=== PATIENT | male | born 1970 | race Caucasian/White ===

== ENCOUNTER 2019-04-23 07:18 | Observation (INO) | payer OTHER ==
--- NOTE | 2019-04-23 07:36 | ER Document Report ---
ED General - General Chief Complaint: Syncope Stated Complaint: POSSIBLE SEIZURE Time Seen by Provider: 04/23/19 07:36 Notes: Patient is a 48-year-old male with diabetes, hypertension, ADHD that presents to the emergency department for chief complaint of syncopal episode. Patient states that he believes that around 6 AM this morning, he had a episode where he passed out, he states that he was looking for his belt last thing he remembers is waking up on the floor, he is unsure how long he lost consciousness for. He is complaining of a headache, which she states did start around 3 AM and woke him up as a right-sided headache. He states he woke up and he had urinated on himself as well. He called his significant other, and apparently he sounded somewhat confused on the phone by the time she got home he was back to his baseline. He denies ever having episodes like this in the past, denies being on insulin, or having low blood sugar in the past. Denies seizure history. At this time is complaining of a headache, describes it as an aching in nature, 3 out of 10 mainly on the right side of his head. Denies any blurred vision or change in vision, denies any numbness, weakness or tingling in any extremity. Past Medical History: Hypertension, diabetes mellitus, ADHD Past Surgical History: Scrotal surgery Social History: Admits to smoking cigarettes, admits to occasional alcohol use, denies illicit drug use, works as a medic. Family History: Reviewed and noncontributory for presenting illness Allergies: Reviewed, see documented allergy list. REVIEW OF SYSTEMS: Other than noted above, the 12 point review of systems was reviewed with the patient and were negative, all pertinent findings are included in the HPI. PHYSICAL EXAMINATION: Vital signs reviewed, nursing noted reviewed. GENERAL: Well-appearing, well-nourished and in no acute distress. HEAD: Atraumatic, normocephalic. EYES: Eyes appear normal, extraocular movements intact, sclera anicteric, conjunctiva are normal. PERRLA ENT: nares patent, oropharynx clear without exudates. Moist mucous membranes. TMs appear normal bilaterally NECK: Normal range of motion, supple without lymphadenopathy, no midline tenderness LUNGS: Breath sounds clear to auscultation bilaterally and equal. No wheezes rales or rhonchi. HEART: Regular rate and rhythm without murmurs ABDOMEN: Soft, obese, nontender, normoactive bowel sounds. No rebound, guarding, or rigidity. No masses appreciated. EXTREMITIES: Nontender, good range of motion, no pitting or edema. NEUROLOGICAL: No focal neurological deficits. Moves all extremities spontaneously Motor and sensory grossly intact on exam. NIH stroke scale score: 0 PSYCH: Normal mood, normal affect. SKIN: Warm, Dry, normal turgor, no rashes or lesions noted on exposed skin TRAVEL OUTSIDE OF THE [place] IN LAST 30 DAYS: No - Related Data Allergies/Adverse Reactions: amoxicillin [Amoxicillin] Allergy (Verified 04/23/19 10:07) baxtra Allergy (Uncoded 04/23/19 10:07) Past Medical History - Social History Smoking Status: Current Every Day Smoker Family History: Reviewed & Not Pertinent, Other - Past Medical History Cardiac Medical History: Reports: Hx Hypertension Pulmonary Medical History: Denies: Hx Tuberculosis Past Surgical History: Reports: Hx Orthopedic Surgery - 8 broken vertebrea, shoulder surgery. Denies: Hx Pacemaker - Immunizations Hx Diphtheria, Pertussis, Tetanus Vaccination: Yes Physical Exam - Vital signs Vitals: Temp Pulse Resp BP Pulse Ox 98.3 F 99 18 139/91 H 100 04/23/19 07:26 04/23/19 07:26 04/23/19 07:26 04/23/19 07:26 04/23/19 07:26 Course - Re-evaluation Re-evalutation: Patient seen and examined vital signs reviewed. Laboratory data and imaging were ordered as appropriate for the patient's presenting symptoms and complaint, with consideration of any critical or life threatening conditions that may be associated with their obtained history and exam as noted above. Patient was treated with IV fluids, Reglan, Tylenol for headache Results were reviewed when available and demonstrated slightly elevated creatin ine from baseline, which was from many years ago, this may be his new baseline, troponin negative, EKG unremarkable, The patient was re-evaluated and was stable, however the patient's story is concerning, of having a syncopal episode, without prodrome, and urination, possible postictal state, unclear if this is seizure versus syncope, and I think it warrants further work-up with observation in the hospital, I discussed with the patient and he was agreeable. Evaluation was most consistent with syncopal episode, versus seizure Results were discussed with the patient at this point after careful consideration I feel that that patient should be admitted to the hospital. This was discussed with the patient that it is in the best interest for their care to be admitted for further evaluation and management. Patient agreed with this plan of care. A call was placed to the admitting provider Sada Solares CNP, who graciously accepted the patient onto their service. *Note is created using voice recognition software and may contain spelling, syntax or grammatical errors. Laboratory 04/23/19 04/23/19 04/23/19 07:42 07:42 07:42 WBC 7.4 RBC 5.53 Hgb 16.1 Hct 47.6 MCV 86 MCH 29.0 MCHC 33.7 RDW 14.5 H Plt Count 254 Seg Neutrophils % 62.8 Lymphocytes % 27.0 Monocytes % 6.7 Eosinophils % 2.7 Basophils % 0.8 Absolute Neutrophils 4.6 Absolute Lymphocytes 2.0 Absolute Monocytes 0.5 Absolute Eosinophils 0.2 Absolute Basophils 0.1 Sodium 138.2 Potassium 4.4 Chloride 99 Carbon Dioxide 28 Anion Gap 11 BUN 23 H Creatinine 1.33 H Est GFR ( Amer) > 60 Est GFR (Non-Af Amer) 57 L Glucose 109 Calcium 11.5 H Total Bilirubin 0.5 Direct Bilirubin 0.4 Neonat Total Bilirubin Not Reportable Neonat Direct Bilirubin Not Reportable Neonat Indirect Bili Not Reportable AST 54 ALT 97 H Alkaline Phosphatase 72 Creatine Kinase 177 H Troponin I < 0.012 Total Protein 7.[address] 04/23/19 00:00 IMPRESSION: No acute intracranial pathology. EVIDENCE OF ACUTE STROKE: NO. - Vital Signs Vital signs: Temp Pulse Resp BP Pulse Ox 98.3 F 77 19 146/72 H 98 04/23/19 07:26 04/23/19 10:40 04/23/19 10:39 04/23/19 10:40 04/23/19 10:39 - Laboratory Result Diagrams: 04/23/19 07:42 04/23/19 07:42 Laboratory results interpreted by me: 04/23/19 04/23/19 07:42 07:42 RDW 14.5 H BUN 23 H Creatinine 1.33 H Est GFR (Non-Af Amer) 57 L Calcium 11.5 H ALT 97 H Creatine Kinase 177 H - EKG Interpretation by Me Additional EKG results interpreted by me: EKG demonstrates sinus rhythm with a ventricular rate of 91 bpm, normal axis, normal intervals, no evidence of acute ischemia in this EKG, this is compared with a prior EKG from 10/16/2012, without significant change. Discharge - Discharge Clinical Impression: Syncope Condition: Stable Disposition: ADMITTED OBSERVATION Admitting Provider: Phan (Hospitalist) - Sada Solares [facility] Unit Admitted: Telemetry
[2019-04-23 07:59] LABS: ABSOLUTE BASOPHILS # (AUTO) 0.1 10^3/uL (0.0-0.2); ABSOLUTE EOSINOPHILS # (AUTO) 0.2 10^3/uL (0.0-0.6); ABSOLUTE MONOCYTES (AUTO) 0.5 10^3/uL (0.1-1.4); ABSOLUTE NEUT (AUTO) 4.6 10^3/uL (1.7-8.2); BASOPHILS % (AUTO) 0.8 % (0-2); EOSINOPHILS % (AUTO) 2.7 % (0-6); HEMATOCRIT 47.6 % (37.9-51.0); HEMOGLOBIN 16.1 g/dL (13.5-17.0); MEAN CORPUSCULAR HGB CONC 33.7 g/dL (32.0-36.0); MEAN CORPUSCULAR VOLUME 86 fl (80-97); MONOCYTES % (AUTO) 6.7 % (3-13); PLATELET COUNT 254 10^3/uL (150-450); RED BLOOD COUNT 5.53 10^6/uL (4.35-5.55); RED CELL DISTRIBUTION WIDTH 14.5 % (11.5-14.0); SEGMENTED NEUTROPHILS % (AUTO) 62.8 % (42-78); TOTAL CELLS COUNTED % (AUTO) 100 %; WHITE BLOOD COUNT 7.4 10^3/uL (4.0-10.5)
[2019-04-23 08:16] LABS: ALANINE AMINOTRANSFERASE 97 U/L (21-72); ALBUMIN 4.8 g/dL (3.5-5.0); ALKALINE PHOSPHATASE 72 U/L (38-126); ANION GAP 11 (5-19); ASPARTATE AMINO TRANSFERASE 54 U/L (17-59); BILIRUBIN,DIRECT 0.4 mg/dL (0.0-0.4); BILIRUBIN,TOTAL 0.5 mg/dL (0.2-1.3); BLOOD UREA NITROGEN 23 mg/dL (7-20); CALCIUM 11.5 mg/dL (8.4-10.2); CARBON DIOXIDE 28 mmol/L (22-30); CHLORIDE 99 mmol/L (98-107); CREATINE KINASE 177 U/L (55-170); GLUCOSE 109 mg/dL (75-110); POTASSIUM 4.4 mmol/L (3.6-5.0); SODIUM 138.2 mmol/L (137-145); TOTAL PROTEIN 7.9 g/dL (6.3-8.2)
[2019-04-23] MEDS ORDERED: ACETAMINOPHEN 325 MG TABLET PO ONE (08:26)
[2019-04-23] MEDS ORDERED: NORMAL SALINE 1000 ML 1,000 ML IV ONE (08:26)
[2019-04-23] MEDS ORDERED: METOCLOPRAMIDE HCL INJ/PF 10 MG/2 ML SDV IV ONE (08:26)
--- NOTE | 2019-04-23 08:41 | RADIOLOGY REPORT (SQ) ---
EXAM DESCRIPTION: CT HEAD WITHOUT COMPLETED DATE/TIME: 04/23/2019 8:17 am REASON FOR STUDY: syncope and hit head COMPARISON: 01/11/2011 TECHNIQUE: Axial images acquired through the brain without intravenous contrast. Images reviewed wi th bone, brain and subdural windows. Additional sagittal and coronal reconstructions were generated. Images stored on PACS. All CT scanners at this facility use dose modulation, iterative reconstruction, and/or weight based d osing when appropriate to reduce radiation dose to as low as reasonably achievable (ALARA). [facility]: Dose Right [facility]: CareDose [facility]: Dose Right [facility]: Teradose 4D [facility]: [employer] RADIATION DOSE: CT Rad equipment meets quality standard of care and radiation dose reduction techniq ues were employed. CTDIvol: 53.2 mGy. DLP: 1097 mGy-cm. mGy. LIMITATIONS: None. FINDINGS: VENTRICLES: Normal size and contour. CEREBRUM: No masses. No hemorrhage. No midline shift. No evidence for acute infarction. Normal gra y/white matter differentiation. No areas of low density in the white matter. CEREBELLUM: No masses. No hemorrhage. No alteration of density. No evidence for acute infarction. EXTRAAXIAL SPACES: No fluid collections. No masses. ORBITS AND GLOBE: No intra- or extraconal masses. Normal contour of globe without masses. CALVARIUM: No fracture. PARANASAL SINUSES: No fluid or mucosal thickening. SOFT TISSUES: No mass or hematoma. OTHER: No other significant finding. IMPRESSION: No acute intracranial pathology. EVIDENCE OF ACUTE STROKE: NO. COMMENT: Quality ID # [id number]: Final reports with documentation of one or more dose reduction techniques (e.g., Automated exposure control, adjustment of the mA and/or kV according to patient size, use of iterative reconstruction technique) TECHNICAL DOCUMENTATION: JOB ID: [id number] [employer]- All Rights Reserved Reading location - IP/workstation name: [email or web address]
[2019-04-23 10:31] LABS: APPEARANCE,URINE CLEAR; BILIRUBIN,URINE NEGATIVE (NEGATIVE); COLOR,URINE YELLOW; GLUCOSE, URINE NEGATIVE (NEGATIVE); KETONES,URINE NEGATIVE (NEGATIVE); LEUKOCYTE ESTERASE,URINE NEGATIVE (NEGATIVE); NITRITE,URINE NEGATIVE (NEGATIVE); PROTEIN,URINE NEGATIVE (NEGATIVE); URINE SPECIFIC GRAVITY 1.019; UROBILINOGEN,URINE NEGATIVE mg/dL (<2.0)
--- NOTE | 2019-04-23 10:44 | RADIOLOGY REPORT (SQ) ---
EXAM DESCRIPTION: CHEST SINGLE VIEW COMPLETED DATE/TIME: 04/23/2019 10:19 am REASON FOR STUDY: SYNCOPE COMPARISON: 10/16/2012 EXAM PARAMETERS: NUMBER OF VIEWS: One view. TECHNIQUE: Single frontal radiographic view of the chest acquired. RADIATION DOSE: NA LIMITATIONS: None. FINDINGS: LUNGS AND PLEURA: No opacities, masses or pneumothorax. No pleural effusion. MEDIASTINUM AND HILAR STRUCTURES: No masses. Contour normal. HEART AND VASCULAR STRUCTURES: Heart normal in size. Normal vasculature. BONES: No acute findings. HARDWARE: None in the chest. OTHER: No other significant finding. IMPRESSION: NO ACUTE RADIOGRAPHIC FINDING IN THE CHEST. TECHNICAL DOCUMENTATION: JOB ID: [id number] [employer]- All Rights Reserved Reading location - IP/workstation name: [email or web address]
[2019-04-23] MEDS ORDERED: ONDANSETRON 4 MG TAB.RAPDIS PO PRN (10:54)
[2019-04-23] MEDS ORDERED: ACETAMINOPHEN 325 MG TABLET PO PRN ×2 (10:54→17:30)
[2019-04-23] MEDS ORDERED: DEXTROSE 50%-WATER 25 GM/50 ML DISP.SYRIN IV PRN ×2 (11:03)
[2019-04-23] MEDS ORDERED: GLUCAGON,HUMAN RECOMB 1 MG INJ IM PRN (11:03)
[2019-04-23] MEDS ORDERED: HYDRALAZINE HCL INJ/PF 20 MG/1 ML SDV IV PRN (11:03)
[2019-04-23] MEDS ORDERED: DEXTROSE 40% GEL 15 GM TUBE PO PRN ×2 (11:03)
--- NOTE | 2019-04-23 11:29 | EKG REPORT ---
SEVERITY:- NORMAL ECG - SINUS RHYTHM : Confirmed by: Amy Choudhury MD 23-Apr-2019 11:28:03
[2019-04-23 15:42] LABS: URINE AMPHETAMINES SCREEN UNCONFIRMED POSITIVE; URINE BARBITURATES SCREEN NEGATIVE; URINE BENZODIAZEPINES SCREEN NEGATIVE; URINE COCAINE SCREEN NEGATIVE; URINE MARIJUANA (THC) SCREEN NEGATIVE; URINE METHADONE SCREEN NEGATIVE; URINE PHENCYCLIDINE SCREEN NEGATIVE
[2019-04-23] MEDS ORDERED: LORAZEPAM INJ 2 MG/1 ML VIAL IV PRN (16:12)
[2019-04-23] MEDS ORDERED: (PENDING PHARMACY ID) (Oxycodone Hcl/Acetaminophen [Oxycodon-Acetaminophen 7.5-325] 1 TAB) PO PRN ×2 (16:13→17:10)
[2019-04-23] MEDS: INSULIN LISPRO 100 UNIT/ML 3 ML VIAL SUBCUT SCH ×2 (16:32→21:36)
--- NOTE | 2019-04-23 16:39 | PDOC H&P ---
History of Present Illness Admission Date/PCP: 04/23/19 10:46 KATIE LOVING MD Patient complains of: LOC History of Present Illness: STACIA DAMIAN is a 48 year old male with a PMH of DM, HTN, morbid obesity, 0.5 PPD smoker and ADHD. He presents to [facility] following an episode of loss of consciousness this morning at approximately 0610. The patient states that he was getting ready for work, standing up getting dressed when, "the next thing I knew, I was on the ground." Patient endorses an episode of urinary incontinence. The patient immediately called his (a crossbar frame wirer). She reports that his speech was somewhat slurred and she had difficulty understanding him. This episode prompted the patient to come to [facility] ED for evaluation. Upon arrival to [facility], the patient's vital signs were WNL. Head CT benign. CXR negative for cardiopulmonary pathology. Laboratory results revealed acute kidney injury (creatinine 1.33 baseline 1.0). All other laboratory studies, including CBC, cardiac enzymes and chemistry were WNL. Upon assessment, the patient is sitting up in chair at bedside. He is alert and oriented x3, able to answer all questions appropriately without pause. He endorses mild right frontal headache and right eye blurry vision. Small area of soft tissue swelling above the right eye. Remaining physical exam is completely benign. Given the patient's body habitus and medical history, it is highly unlikely that he is now developing a seizure disorder. In the absence of neuro pathology on CT scan, primary differential diagnosis is cardiac arrhythmia. Discussed patient's case with reel hooker, Dr. Hou, who agrees. Plan to admit patient to hospitalist service for syncope work-up. Past Medical History Cardiac Medical History: Reports: Hypertension Pulmonary Medical History: Denies: Tuberculosis Neurological Medical History: Reports: Migraine Endocrine Medical History: Reports: Diabetes Mellitus Type 2 Past Surgical History Past Surgical History: Reports: Orthopedic Surgery - 8 broken vertebrea, shoulder surgery Denies: Pacemaker Social History Information Source: Patient Lives with: Family Smoking Status: Current Every Day Smoker Cigarettes Packs Per Day: 0.5 Number of Years Smokin Frequency of Alcohol Use: Rare Hx Recreational Drug Use: No Drugs: None Hx Prescription Drug Abuse: No - Advance Directive Resuscitation Status: Full Code Family History Family History: DM, Hypertension Parental Family History Reviewed: Yes Children Family History Reviewed: NA Sibling(s) Family History Reviewed.: Yes Medication/Allergy Home Medications: Chlorthalidone [Hygroton 25 mg Tablet] 25 mg PO DAILY 04/23/19 Dextroamphetamine/Amphetamine [Adderall XR 20 mg Capsule] 20 mg PO QAM 04/23/19 Dextroamphetamine/Amphetamine [Dextroamp-Amphetamin 20 mg Tab] 20 mg PO NOON 04/23/19 Metformin HCl [Metformin HCl ER] 1,000 mg PO DAILY 04/23/19 Oxycodone HCl/Acetaminophen [Oxycodon-Acetaminophen 7.5-325] 1 tab PO Q8HP PRN 04/23/19 Valsartan 320 mg PO DAILY 04/23/19 Allergies/Adverse Reactions: amoxicillin [Amoxicillin] Allergy (Verified 04/23/19 10:07) baxtra Allergy (Uncoded 04/23/19 10:07) Review of Systems Constitutional: PRESENT: headache(s) - R frontal Eyes: PRESENT: visual disturbances - R eye Nose, Mouth, and Throat: PRESENT: headache(s) - R head Cardiovascular: ABSENT: chest pain, orthropnea, palpitations Gastrointestinal: ABSENT: abdominal pain, nausea, vomiting Genitourinary: ABSENT: dysuria Musculoskeletal: ABSENT: joint swelling, muscle weakness Integumentary: ABSENT: diaphoresis Neurological: ABSENT: abnormal gait, vertigo, weakness Psychiatric: ABSENT: anxiety, depression Endocrine: ABSENT: cold intolerance, heat intolerance Hematologic/Lymphatic: ABSENT: easy bleeding Physical Exam Vital Signs: Temp Pulse Resp BP Pulse Ox 98.3 F 77 14 114/76 99 04/23/19 07:26 04/23/19 10:40 04/23/19 12:00 04/23/19 11:02 04/23/19 12:00 Intake & Output 04/22/19 04/23/19 04/24/19 06:59 06:59 06:59 Intake Total 1000 Balance 1000 Weight 171.912 kg General appearance: PRESENT: no acute distress, morbidly obese Head exam: PRESENT: atraumatic, normocephalic Eye exam: PRESENT: conjunctiva pink, EOMI, PERRLA. ABSENT: scleral icterus Ear exam: PRESENT: normal external ear exam Mouth exam: PRESENT: moist, tongue midline Neck exam: PRESENT: full ROM. ABSENT: carotid bruit, JVD, lymphadenopathy, thyromegaly Respiratory exam: PRESENT: clear to auscultation colette, symmetrical, unlabored. ABSENT: rales, rhonchi, wheezes Cardiovascular exam: PRESENT: RRR. ABSENT: diastolic murmur, rubs, systolic murmur Pulses: PRESENT: normal radial pulses, normal dorsalis pedis pul Vascular exam: PRESENT: normal capillary refill GI/Abdominal exam: PRESENT: normal bowel sounds, soft. ABSENT: distended, guarding, mass, organolmegaly, rebound, tenderness Rectal exam: PRESENT: deferred Extremities exam: PRESENT: full ROM. ABSENT: calf tenderness, clubbing, pedal edema Musculoskeletal exam: PRESENT: ambulatory, full ROM Neurological exam: PRESENT: alert, awake, oriented to person, oriented to place, oriented to time, oriented to situation Psychiatric exam: PRESENT: appropriate affect, normal mood Skin exam: PRESENT: dry, intact, warm. ABSENT: cyanosis, rash Results Laboratory Results: 04/23/19 07:42 04/23/19 07:42 04/23/19 04/23/19 04/23/19 07:42 07:42 07:42 WBC 7.4 RBC 5.53 Hgb 16.1 Hct 47.6 MCV 86 MCH 29.0 MCHC 33.7 RDW 14.5 H Plt Count 254 Seg Neutrophils % 62.8 Lymphocytes % 27.0 Monocytes % 6.7 Eosinophils % 2.7 Basophils % 0.8 Absolute Neutrophils 4.6 Absolute Lymphocytes 2.0 Absolute Monocytes 0.5 Absolute Eosinophils 0.2 Absolute Basophils 0.1 Sodium 138.2 Potassium 4.4 Chloride 99 Carbon Dioxide 28 Anion Gap 11 BUN 23 H Creatinine 1.33 H Est GFR ( Amer) > 60 Est GFR (Non-Af Amer) 57 L Glucose 109 Calcium 11.5 H Total Bilirubin 0.5 AST 54 ALT 97 H Alkaline Phosphatase 72 Total Protein 7.9 Albumin 4.8 TSH 3.68 Urine Color Urine Appearance Urine pH Ur Specific [place] Urine Protein Urine Glucose (UA) Urine Ketones Urine Blood Urine Nitrite Ur Leukocyte Esterase Urine WBC (Auto) Urine RBC (Auto) 04/23/19 09:46 WBC RBC Hgb Hct MCV MCH MCHC RDW Plt Count Seg Neutrophils % Lymphocytes % Monocytes % Eosinophils % Basophils % Absolute Neutrophils Absolute Lymphocytes Absolute Monocytes Absolute Eosinophils Absolute Basophils Sodium Potassium Chloride Carbon Dioxide Anion Gap BUN Creatinine Est GFR ( Amer) Est GFR (Non-Af Amer) Glucose Calcium Total Bilirubin AST ALT Alkaline Phosphatase Total Protein Albumin TSH Urine Color YELLOW Urine Appearance CLEAR Urine pH 5.0 Ur Specific [place] 1.019 Urine Protein NEGATIVE Urine Glucose (UA) NEGATIVE Urine Ketones NEGATIVE Urine Blood NEGATIVE Urine Nitrite NEGATIVE Ur Leukocyte Esterase NEGATIVE Urine WBC (Auto) 1 Urine RBC (Auto) 0 04/23/19 04/23/19 07:42 07:42 Creatine Kinase 177 H Troponin I < 0.012 Impressions: Head CT 04/23/19 00:00 IMPRESSION: No acute intracranial pathology. EVIDENCE OF ACUTE STROKE: NO. Chest X-Ray 04/23/19 09:44 IMPRESSION: NO ACUTE RADIOGRAPHIC FINDING IN THE CHEST. Status: Imported from PACS Assessment and Plan - Diagnosis (1) Syncope Qualifiers: Syncope type: unspecified Qualified Code(s): R55 - Syncope and collapse Is this a current diagnosis for this admission?: Yes Plan: Unclear etiology at this time Possibly cardiac arrythmia vs. seizure Head CT negative Unable to complete MRI due to body habitus CTA head and neck pending ECHOcardiogram pending Admit to telemetry Discussed the patient's case with reel hooker, Dr Hou, who agrees that the patient's presentation sounds more like arrythmia than seizure or vasovagal. (2) HTN (hypertension) Qualifiers: Hypertension type: essential hypertension Qualified Code(s): I10 - Essential (primary) hypertension Is this a current diagnosis for this admission?: Yes Plan: H HTN Well-controlled since admission Continue home dose antihypertensives (3) Diabetes Qualifiers: Diabetes mellitus type: type 2 Is this a current diagnosis for this admission?: Yes Plan: H diabetes type 2 Check hemoglobin A1c in a.m. Diabetic diet Accu-Cheks AC at bedtime Humalog sliding scale insulin (4) Chronic back pain Qualifiers: Back pain location: low back pain Is this a current diagnosis for this admission?: Yes Plan: History of chronic back pain due to multiple thoracic and lumbar and sacral fractures Continue home dose PRN Percocet - Time Time Spent with patient: 15-24 minutes Medications reviewed and adjusted accordingly: Yes Anticipated discharge: Home Within: within 48 hours - Inpatient Certification Based on my medical assessment, after consideration of the patient's comorbidities, presenting symptoms, or acuity I expect that the services needed warrant INPATIENT care.: Yes I certify that my determination is in accordance with my understanding of Medicare's requirements for reasonable and necessary INPATIENT services [42 CFR 412.3e].: Yes Medical Necessity: Need For Continuous Telemetry Monitoring, Risk of Complication if Not Cared For in Hospital
[2019-04-23] MEDS ORDERED: OXYCODONE HCL IR 5 MG TABLET PO PRN (17:11)
--- NOTE | 2019-04-23 18:17 | RADIOLOGY REPORT (SQ) ---
EXAM DESCRIPTION: CTA HEAD COMPLETED DATE/TIME: 04/23/2019 5:56 pm REASON FOR STUDY: syncope COMPARISON: None. TECHNIQUE: Post IV contrast scanning, thin section axial imaging through the brain to evaluate the a rterial structures. Source and MIP images are saved and reviewed on PACS. Advanced 3D imaging as volume-rendering, MIPs, SSD performed? yes All CT scanners at this facility use dose modulation, iterative reconstruction, and/or weight based d osing when appropriate to reduce radiation dose to as low as reasonably achievable (ALARA). [facility]: Dose Right [facility]: CareDose [facility]: Dose Right [facility]: Teradose 4D [facility]: [employer] CONTRAST TYPE AND DOSE: 70 mL Omnipaque 350- low osmolar. RENAL FUNCTION: BUN 23 creatinine 1.33 LIMITATIONS: None. FINDINGS: [place]: The anterior, middle, posterior cerebral arteries are all patent. No ev idence of aneurysm or focal stenosis. POSTERIOR CIRCULATION: The distal vertebral arteries are patent as is the basilar artery. No aneurysm . BRAIN: No gross enhancing lesions as visualized. The superior cerebral hemispheres are not included in the field of view. BONES: Intact as visualized. SINUSES: No fluid or mucosal thickening. OTHER: No other significant finding. IMPRESSION: NO CTA EVIDENCE OF STENOSIS OR ANEURYSM OF THE [place]. TECHNICAL DOCUMENTATION: JOB ID: [id number] Quality ID # [id number]: Final reports with documentation of one or more dose reduction techniques (e.g., Au tomated exposure control, adjustment of the mA and/or kV according to patient size, use of iterative reconstruction technique) 2010 [employer]- All Rights Reserved Reading location - IP/workstation name: [email or web address]
--- NOTE | 2019-04-23 18:32 | RADIOLOGY REPORT (SQ) ---
EXAM DESCRIPTION: CTA NECK COMPLETED DATE/TIME: 04/23/2019 5:56 pm REASON FOR STUDY: syncope COMPARISON: None. TECHNIQUE: Axial dynamic scanning technique with dynamic contrast enhancement through the extra-aircraft maintenance engineer nial carotid and vertebral arteries. Multiplanar reconstruction. 3-D MIPS and Volume-rendered imag es acquired at the workstation and saved to PACS. Images are reviewed in soft tissue, bone, lung w indows. All CT scanners at this facility use dose modulation, iterative reconstruction, and/or weight based d osing when appropriate to reduce radiation dose to as low as reasonably achievable (ALARA). [facility]: Dose Right [facility]: CareDose [facility]: Dose Right [facility]: Teradose 4D [facility]: [employer] CONTRAST TYPE AND DOSE: contrast/concentration: Isovue 350.00 mg/ml; Total Contrast Delivered: 70.0 ml; Total Saline Delivered: 73.0 ml RENAL FUNCTION: BUN 23 creatinine 1.33 LIMITATIONS: None. FINDINGS: AORTIC ARCH: Normal three-vessel origin. Bilateral subclavian arteries are patent. No d issection. RIGHT CAROTIDS: Patent common, internal and external carotid arteries without suggestion of significa nt stenosis or irregular plaque. No dissection. RIGHT VERTEBRAL: Patent. No dissection. LEFT CAROTIDS: Patent common, internal and external carotid arteries without suggestion of significan t stenosis or irregular plaque. No dissection. LEFT VERTEBRAL: Patent. No dissection. OTHER: No other significant finding. OTHER: 3-D reconstructions confirm findings. IMPRESSION: NORMAL CTA OF THE EXTRA-CRANIAL CAROTID AND VERTEBRAL ARTERIES. COMMENT: Quality ID #[id number]: Measurements of distal internal carotid diameter were used as the denomina tor for stenosis measurement. TECHNICAL DOCUMENTATION: JOB ID: [id number] Quality ID # [id number]: Final reports with documentation of one or more dose reduction techniques (e.g., Au tomated exposure control, adjustment of the mA and/or kV according to patient size, use of iterative reconstruction technique) 2010 [employer]- All Rights Reserved Reading location - IP/workstation name: [email or web address]
--- NOTE | 2019-04-23 20:48 | XCELERA REPORT ---
[address] [address] Transthoracic Echocardiogram Report Name: STACIA DAMIAN Age: 48 yrs Gender: Male : 1970 Patient Status: Inpatient Patient Location: [id number] Study Date: 04/23/2019 07:35 PM Height: 73 in Weight: 379 lb BSA: 2.8 m2 Reason For Study: syncope. possible new arrythmia Ordering Physician: MARCI ASHTON Performed By: LOLIS Interpretation Summary Poor qualty study likely secondary to patient's body habitus. Lack of contrat opacification limits evaluation of wall motion and to rule out intracardiac mass/ thrombus. LV poorly visualized but in some views LVEF appears normal at around 60-65%. RV not well visulalized but RV systolic function appears normal visually. Atrial not well visualized. The aortic valve is not well visualized secondary to technical limitations but doppler data provided not suggestive of aany significant stenosis. There is a trace amount of tricuspid regurgitation The aortic root is normal size. IVC not well visualized but likely mildly dilated. MMode/2D Measurements & Calculations RVDd: 2.7 cm LVIDd: 4.7 cm FS: 28.6 % Ao root diam: 3.3 cm IVSd: 1.2 cm LVIDs: 3.4 cm EDV(Teich): 103.1 ml LVPWd: 1.1 cm ESV(Teich): 46.2 ml Ao root area: 8.5 cm2 LA dimension: 3.3 cm EF(Teich): 55.2 % Doppler Measurements & Calculations MV E max gallo: MV P1/2t max gallo: Ao V2 max: LV V1 max P.8 cm/sec 99.9 cm/sec 123.8 cm/sec 3.6 mmHg MV A max gallo: MV P1/2t: 49.0 msec Ao max P.1 mmHg LV V1 max: 71.1 cm/sec MVA(P1/2t): 4.5 cm2 95.3 cm/sec MV E/A: 0.77 MV dec slope: 597.1 cm/sec2 MV dec time: 0.19 sec TV V2 max: PA V2 max: MV P1/2t-pr_phl: 122.2 cm/sec 116.2 cm/sec 49.0 msec TV max P.0 mmHgPA max P.4 mmHg Left Ventricle The left ventricle is not well visualized. The left ventricular ejection fraction is normal. LV EF is 60-65%. Right Ventricle The right ventricle is not well visualized secondary to technical limitations. The right ventricular systolic function is normal. Atria Right atrium not well visualized secondary to technical limitations. The left atrium is not well visualized secondary to technical limitations. Mitral Valve The mitral valve is not well visualized. Aortic Valve The aortic valve is not well visualized secondary to technical limitations. There is a peak gradient of 6 mm of Hg. Tricuspid Valve The tricuspid valve is not well visualized secondary to technical limitations. There is a trace amount of tricuspid regurgitation. Pulmonic Valve The pulmonic valve is not well visualized. Great Vessels The aortic root is not well visualized. The aortic root is normal size. IVC not well visualized but likely mildly dilated. Effusions Pericardium not well visualized and hence small pericardial effusion/ thickening cannot be ruled out. : MARCI ASHTON Sanjay
[2019-04-23] MEDS: FAMOTIDINE 20 MG TABLET PO SCH (21:30)
[2019-04-23] MEDS: OXYCODONE-ACETAMINOPHEN 5-325 MG TABLET PO PRN (21:35)
[2019-04-24] MEDS: OXYCODONE-ACETAMINOPHEN 5-325 MG TABLET PO PRN (05:43)
[2019-04-24 07:25] LABS: HEMATOCRIT 42.2 % (37.9-51.0); HEMOGLOBIN 14.3 g/dL (13.5-17.0); MEAN CORPUSCULAR HEMOGLOBIN 29.2 pg (27.0-33.4); MEAN CORPUSCULAR VOLUME 86 fl (80-97); PLATELET COUNT 198 10^3/uL (150-450); RED CELL DISTRIBUTION WIDTH 14.2 % (11.5-14.0); WHITE BLOOD COUNT 5.9 10^3/uL (4.0-10.5)
[2019-04-24 07:58] LABS: ALANINE AMINOTRANSFERASE 78 U/L (21-72); ALBUMIN 4.2 g/dL (3.5-5.0); ALKALINE PHOSPHATASE 61 U/L (38-126); ANION GAP 12 (5-19); ASPARTATE AMINO TRANSFERASE 40 U/L (17-59); BILIRUBIN,DIRECT 0.4 mg/dL (0.0-0.4); BILIRUBIN,TOTAL 0.6 mg/dL (0.2-1.3); BLOOD UREA NITROGEN 23 mg/dL (7-20); CALCIUM 9.4 mg/dL (8.4-10.2); CARBON DIOXIDE 23 mmol/L (22-30); CHLORIDE 100 mmol/L (98-107); CHOLESTEROL 208.07 mg/dL (0-200); GLUCOSE 97 mg/dL (75-110); PHOSPHORUS 4.7 mg/dL (2.5-4.5); POTASSIUM 4.5 mmol/L (3.6-5.0); TOTAL PROTEIN 6.9 g/dL (6.3-8.2); TRIGLYCERIDES 186 mg/dL (<150)
[2019-04-24] MEDS ORDERED: (PENDING PHARMACY ID) (Dextroamphetamine/Amphetamine [Adderall Xr 20 Mg Capsule] 20 MG) PO SCH (08:00)
[2019-04-24 08:05] LABS: VLDL CHOLESTEROL 37.2 mg/dL (10-31)
[2019-04-24 08:10] LABS: DIRECT LDL 137 mg/dL (<100)
[2019-04-24 08:33] VITALS: BP 118/54
[2019-04-24] MEDS: INSULIN LISPRO 100 UNIT/ML 3 ML VIAL SUBCUT SCH (09:39)
[2019-04-24] MEDS: FAMOTIDINE 20 MG TABLET PO SCH (09:48)
[2019-04-24] MEDS ORDERED: VALSARTAN 160 MG TABLET PO SCH (10:00)
[2019-04-24] MEDS ORDERED: (PENDING PHARMACY ID) (Valsartan [Valsartan] 320 MG) PO SCH (10:00)
[2019-04-24] MEDS ORDERED: CHLORTHALIDONE 25 MG TABLET PO SCH (10:00)
--- NOTE | 2019-04-24 10:51 | EKG REPORT ---
SEVERITY:- NORMAL ECG - SINUS RHYTHM : Confirmed by: Amy Choudhury MD 24-Apr-2019 10:50:21
--- NOTE | 2019-04-24 17:56 | PDOC DISCHARGE SUMMARY ---
General - Admit/Disc Date/PCP Admission Date/Primary Care Provider: 04/23/19 10:46 KATIE LOVING MD Discharge Date: 04/24/19 - Discharge Diagnosis (1) Syncope Is this a current diagnosis for this admission?: Yes (2) Chronic back pain Is this a current diagnosis for this admission?: Yes (3) HTN (hypertension) Is this a current diagnosis for this admission?: Yes - Additional Information Resuscitation Status: Full Code Prescriptions: Atorvastatin Calcium [Lipitor 20 mg Tablet] 20 mg PO QHS #30 tablet Home Medications: Chlorthalidone [Hygroton 25 mg Tablet] 25 mg PO DAILY 04/23/19 Dextroamphetamine/Amphetamine [Adderall XR 20 mg Capsule] 20 mg PO QAM 04/23/19 Dextroamphetamine/Amphetamine [Dextroamp-Amphetamin 20 mg Tab] 20 mg PO NOON 04/23/19 Metformin HCl [Metformin HCl ER] 1,000 mg PO DAILY 04/23/19 Oxycodone HCl/Acetaminophen [Oxycodon-Acetaminophen 7.5-325] 1 tab PO Q8HP PRN 04/23/19 Valsartan 320 mg PO DAILY 04/23/19 Atorvastatin Calcium [Lipitor 20 mg Tablet] 20 mg PO QHS #30 tablet 04/24/19 History of Present Illness History of Present Illness: Admitting hospitalist's H&P: STACIA DAMIAN is a 48 year old male with a PMH of DM, HTN, morbid obesity, 0.5 PPD smoker and ADHD. He presents to [facility] following an episode of loss of consciousness this morning at approximately 0610. The patient states that he was getting ready for work, standing up getting dressed when, "the next thing I knew, I was on the ground." Patient endorses an episode of urinary incontinence. The patient immediately called his (a tape librarian). She reports that his speech was somewhat slurred and she had difficulty understanding him. This episode prompted the patient to come to [facility] THE [facility] ED for evaluation. Hospital Course Hospital Course: Patient was admitted for syncope. He did report an episode of urinary incontinence. He denies prior history of seizure. His syncope work-up was negative. He had a CT of the neck and head which were unremarkable. Telemetry monitoring was also unremarkable. Echo also showed normal EF. Orthostatic vital signs are also unremarkable. We did discuss that if this was indeed related to a possible seizure, generally it is not indicated to start antiseizure medication on the first seizure event. Patient did prefer to be discharged today. Discussed he will need to closely follow-up with his PCP for further work-up and appropriate referrals with outpatient neuro if deemed warranted. He has a confirmed appointment with PCP this week. Physical Exam Vital Signs: Temp Pulse Resp BP Pulse Ox 98.9 F 69 16 118/54 L 100 04/24/19 08:00 04/24/19 08:00 04/24/19 08:00 04/24/19 08:00 04/24/19 08:00 Intake & Output 04/23/19 04/24/19 04/25/19 06:59 06:59 06:59 Intake Total 1700 Balance 1700 Weight 373 lb 3.881 oz General appearance: PRESENT: no acute distress, well-developed, well-nourished Head exam: PRESENT: atraumatic, normocephalic Eye exam: PRESENT: conjunctiva pink, EOMI, PERRLA. ABSENT: scleral icterus Ear exam: PRESENT: normal external ear exam Mouth exam: PRESENT: moist, tongue midline Neck exam: ABSENT: carotid bruit, JVD, lymphadenopathy, thyromegaly Respiratory exam: PRESENT: clear to auscultation colette. ABSENT: rales, rhonchi, wheezes Cardiovascular exam: PRESENT: RRR. ABSENT: diastolic murmur, rubs, systolic murmur Pulses: PRESENT: normal dorsalis pedis pul GI/Abdominal exam: PRESENT: normal bowel sounds, soft. ABSENT: distended, guarding, mass, organolmegaly, rebound, tenderness Rectal exam: PRESENT: deferred Extremities exam: PRESENT: full ROM. ABSENT: calf tenderness, clubbing, pedal edema Neurological exam: PRESENT: alert, awake, oriented to person, oriented to place, oriented to time, oriented to situation, CN II-XII grossly intact. ABSENT: motor sensory deficit Results Laboratory Results: 04/24/19 06:50 04/24/19 06:50 04/23/19 04/23/19 04/24/19 07:42 09:46 06:50 WBC 5.9 RBC 4.90 Hgb 14.3 Hct 42.2 MCV 86 MCH 29.2 MCHC 34.0 RDW 14.2 H Plt Count 198 Sodium Potassium Chloride Carbon Dioxide Anion Gap BUN Creatinine Est GFR ( Amer) Est GFR (Non-Af Amer) Glucose Calcium Phosphorus Magnesium Total Bilirubin AST ALT Alkaline Phosphatase Total Protein Albumin Triglycerides Cholesterol LDL Cholesterol Direct VLDL Cholesterol HDL Cholesterol TSH 3.68 Urine Color YELLOW Urine Appearance CLEAR Urine pH 5.0 Ur Specific [place] 1.019 Urine Protein NEGATIVE Urine Glucose (UA) NEGATIVE Urine Ketones NEGATIVE Urine Blood NEGATIVE Urine Nitrite NEGATIVE Ur Leukocyte Esterase NEGATIVE Urine WBC (Auto) 1 Urine RBC (Auto) 0 04/24/19 06:50 WBC RBC Hgb Hct MCV MCH MCHC RDW Plt Count Sodium 135.0 L Potassium 4.5 Chloride 100 Carbon Dioxide 23 Anion Gap 12 BUN 23 H Creatinine 1.16 Est GFR ( Amer) > 60 Est GFR (Non-Af Amer) > 60 Glucose 97 Calcium 9.4 Phosphorus 4.7 H Magnesium 1.9 Total Bilirubin 0.6 AST 40 ALT 78 H Alkaline Phosphatase 61 Total Protein 6.9 Albumin 4.2 Triglycerides 186 H Cholesterol 208.07 H LDL Cholesterol Direct 137 H VLDL Cholesterol 37.2 H HDL Cholesterol 35 L TSH Urine Color Urine Appearance Urine pH Ur Specific [place] Urine Protein Urine Glucose (UA) Urine Ketones Urine Blood Urine Nitrite Ur Leukocyte Esterase Urine WBC (Auto) Urine RBC (Auto) 04/23/19 04/23/19 04/24/19 07:42 07:42 06:50 Creatine Kinase 177 H Troponin I < 0.012 NT-Pro-B Natriuret Pep < 11 Impressions: Head CT 04/23/19 00:00 IMPRESSION: No acute intracranial pathology. EVIDENCE OF ACUTE STROKE: NO. Neck CTA 04/23/19 00:00 IMPRESSION: NORMAL CTA OF THE EXTRA-CRANIAL CAROTID AND VERTEBRAL ARTERIES. Chest X-Ray 04/23/19 09:44 IMPRESSION: NO ACUTE RADIOGRAPHIC FINDING IN THE CHEST. Head CTA 04/23/19 16:16 IMPRESSION: NO CTA EVIDENCE OF STENOSIS OR ANEURYSM OF THE [place] OF [place]. Qualifiers - * PATIENT BEING DISCHARGED WITH ANY OF THE FOLLOWING DIAGNOSIS: No Acute Heart Failure - Is this a Heart Failure Patient?: No LVEF < 40%?: No- if no continue to question #3 3. Anticoagulant therapy for permanect/persistent/paraoxysmal Afib or Aflutter: N/A
== END 2019-04-24 10:53 | disposition home or self-care (01) ==
LOC: ER 07:18 → EH 10:46 → 5 15:45
PROVIDERS: ADMIT Internal Medicine; ATTEND Internal Medicine
DX: R55 Syncope and collapse (principal); G89.29 Other chronic pain; M54.5 Low back pain; I10 Essential (primary) hypertension; R32 Unspecified urinary incontinence; E11.9 Type 2 diabetes mellitus without complications; F17.210 Nicotine dependence, cigarettes, uncomplicated; R47.9 Unspecified speech disturbances; R51 Headache; H53.8 Other visual disturbances; N17.9 Acute kidney failure, unspecified; F90.9 Attention-deficit hyperactivity disorder, unspecified type; R22.0 Localized swelling, mass and lump, head; Z79.84 Long term (current) use of oral hypoglycemic drugs; Z79.899 Other long term (current) drug therapy; Z82.49 Family history of ischemic heart disease and other diseases of the circulatory system; Z87.81 Personal history of (healed) traumatic fracture; R29.700 NIHSS score 0; Z98.890 Other specified postprocedural states
CPT/HCPCS: 93005 ×2; 99285; 96361; 96374; 36415 ×2; 82962 ×2; 82550; 83735; 84100; 84443; 85025; 85027; 80053 ×2; 81001; 84484; 80307; 83036; 80061; 83880; 93306; 71045; 70450; 70496; 70498; 93010 ×2; G0378 ×3; J2765; J7030